=== PATIENT | male | born 1975 | race Caucasian/White ===

== ENCOUNTER 2016-07-11 07:16 | Emergency (ER) | payer MEDICAID, OTHER ==
[~2016-07-11] VITALS: Ht 162.6 cm; Wt 96.8 kg
[~2016-07-11 07:16] MED LIST: IBUP-1547 PO
[2016-07-11] MEDS ORDERED: PENI500T2 PO (07:25)
[2016-07-11 09:05] LABS: BASOPHILS % (AUTO) 0.7 % (0.0-2.0); EOSINOPHILS % (AUTO) 1.8 % (1.0-6.0); HEMATOCRIT 39.5 % (41-53); HEMOGLOBIN 13.5 g/dL (13.5-17.5); LYMPHOCYTES # (AUTO) 1.7 K/uL (1.0-4.8); LYMPHOCYTES % (AUTO) 25.9 % (22.0-44.0); MEAN CORPUSCULAR HEMOGLOBIN 30.4 pg (26.0-34.0); MEAN CORPUSCULAR HGB CONC 34.2 G/dL (31.0-37.0); MEAN CORPUSCULAR VOLUME 89 fL (80-100); MONOCYTES # (AUTO) 0.5 K/uL (0.1-1.0); MONOCYTES % (AUTO) 7.9 % (2.0-9.0); NEUTROPHILS # (AUTO) 4.3 K/uL (1.8-7.7); NEUTROPHILS % (AUTO) 63.7 % (40.0-70.0); PLATELET COUNT (AUTO) 257 K/uL (150-450); RED BLOOD CELL COUNT(AUTO) 4.45 MIL/uL (4.50-5.90); RED CELL DISTRIBUTION WIDTH 13.5 % (11.5-14.5); WHITE BLOOD COUNT (AUTO) 6.7 K/uL (4.5-11.0)
[2016-07-11] MEDS ORDERED: IBUPROFEN 600 MG TABLET PO ONE (11:30)
[2016-07-11 12:47] VITALS: BP 147/93
== END 2016-07-11 13:43 | disposition home or self-care (01) ==
LOC: EMS 07:18
DX: S39.011A Strain of muscle, fascia and tendon of abdomen, initial encounter (principal); Z88.8 Allergy status to other drugs, medicaments and biological substances; X58.XXXA Exposure to other specified factors, initial encounter; Y93.89 Activity, other specified; Y92.89 Other specified places as the place of occurrence of the external cause; Y99.8 Other external cause status
CPT/HCPCS: 99285

== ENCOUNTER 2019-01-10 17:26 | Emergency (ER) | payer OTHER ==
[~2019-01-10] VITALS: Ht 172.7 cm; Wt 90.9 kg
[~2019-01-10 17:26] MED LIST changes: -IBUP-1547 PO; +IBUP-2071 PO; +PENI500T2 PO
[2019-01-10] MEDS ORDERED: SERT25TA PO (17:31)
[2019-01-10 19:37] VITALS: BP 128/88
== END 2019-01-10 19:38 | disposition home or self-care (01) ==
LOC: EMS 17:26
DX: J40 Bronchitis, not specified as acute or chronic (principal); K21.9 Gastro-esophageal reflux disease without esophagitis; F41.9 Anxiety disorder, unspecified; F12.90 Cannabis use, unspecified, uncomplicated; Z88.6 Allergy status to analgesic agent; Z98.890 Other specified postprocedural states; Z79.899 Other long term (current) drug therapy

== ENCOUNTER 2019-01-31 19:58 | Emergency (ER) | payer OTHER ==
[~2019-01-31] VITALS: Ht 165.1 cm; Wt 89.1 kg
[~2019-01-31 19:58] MED LIST changes: -IBUP-2071 PO; -PENI500T2 PO; +SERT25TA PO
[2019-01-31 20:57] LABS: BASOPHILS % (AUTO) 0.6 % (0.0-2.0); EOSINOPHILS % (AUTO) 1.5 % (1.0-6.0); HEMATOCRIT 41.3 % (41-53); HEMOGLOBIN 13.9 g/dL (13.5-17.5); LYMPHOCYTES # (AUTO) 2.1 K/uL (1.0-4.8); LYMPHOCYTES % (AUTO) 24.3 % (22.0-44.0); MEAN CORPUSCULAR HEMOGLOBIN 30.5 pg (26.0-34.0); MEAN CORPUSCULAR HGB CONC 33.7 G/dL (31.0-37.0); MEAN CORPUSCULAR VOLUME 91 fL (80-100); MONOCYTES # (AUTO) 0.7 K/uL (0.1-1.0); MONOCYTES % (AUTO) 7.8 % (2.0-9.0); NEUTROPHILS # (AUTO) 5.6 K/uL (1.8-7.7); NEUTROPHILS % (AUTO) 65.8 % (40.0-70.0); PLATELET COUNT (AUTO) 288 K/uL (150-450); RED BLOOD CELL COUNT(AUTO) 4.57 MIL/uL (4.50-5.90); RED CELL DISTRIBUTION WIDTH 13.2 % (11.5-14.5)
[2019-01-31 21:05] LABS: APPEARANCE,URINE CLOUDY (CLEAR); GLUCOSE, URINE (UA) NEGATIVE (NEGATIVE); KETONES,URINE NEGATIVE (NEGATIVE); LEUKOCYTE ESTERASE ,URINE NEGATIVE (NEGATIVE); NITRATE,URINE NEGATIVE (NEGATIVE); OCCULT BLOOD,URINE LARGE (NEGATIVE); PH,URINE 5.5 (5.0-8.0); PROTEIN,URINE TRACE (NEGATIVE)
[2019-01-31 21:06] LABS: BILIRUBIN,URINE PRELIM. POSITIVE (NEGATIVE)
[2019-01-31 21:20] LABS: RBC,URINE 26-50 /HPF (0-2)
[2019-01-31 21:21] LABS: BACTERIA,URINE Few /HPF (None Seen); MUCUS,URINE Many LPF (None Seen); SQUAMOUS EPITHELIAL CELL,UR Moderate /LPF (None Seen)
[2019-01-31 21:53] LABS: ANION GAP 11 mmol/L (8-16); CALCIUM, TOTAL 9.1 mg/dL (8.8-10.5); CARBON DIOXIDE 25 mmol/L (22-29); CHLORIDE 104 mmol/L (98-107); CREATININE 0.89 mg/dL (0.60-1.30); GLOMERULAR FILTR. RATE CALC > 60 mL/min (>60); GLUCOSE,RANDOM 102 mg/dL (70-110); POTASSIUM 3.2 mmol/L (3.5-5.1); SODIUM SERUM 140 mmol/L (136-145); UREA NITROGEN, BLOOD 14 mg/dL (7-18)
[2019-01-31 21:59] LABS: ALANINE AMINOTRANSFERASE 41 U/L (12-78); ALBUMIN 3.8 g/dL (3.4-5.0); ALKALINE PHOSPHATASE 66 U/L (46-116); ASPARTATE AMINOTRANSFERASE 32 U/L (15-37); BILIRUBIN,TOTAL 0.4 mg/dL (0.1-1.0); LIPASE 233 U/L (73-393); TOTAL PROTEIN, SERUM 7.3 g/dL (6.4-8.2)
[2019-01-31] MEDS ORDERED: POTASSIUM CHLORIDE 20 MEQ ER TABLET PO ONE (22:00)
[2019-01-31 22:37] VITALS: BP 138/78
== END 2019-01-31 22:56 | disposition home or self-care (01) ==
LOC: EMS 19:59
DX: N20.9 Urinary calculus, unspecified (principal); J45.909 Unspecified asthma, uncomplicated; F41.9 Anxiety disorder, unspecified; F12.90 Cannabis use, unspecified, uncomplicated; F17.290 Nicotine dependence, other tobacco product, uncomplicated; Z88.8 Allergy status to other drugs, medicaments and biological substances; Z79.899 Other long term (current) drug therapy
CPT/HCPCS: 99406

== ENCOUNTER 2019-03-25 22:44 | Emergency (ER) | payer OTHER ==
[~2019-03-25] VITALS: Ht 154.9 cm; Wt 90.9 kg
[2019-03-26] MEDS ORDERED: HydrOXYzine HCL 25 MG TABLET PO ONE
[2019-03-26 01:28] VITALS: BP 123/71
== END 2019-03-26 01:52 | disposition home or self-care (01) ==
LOC: EMS 22:47
DX: F41.9 Anxiety disorder, unspecified (principal); G47.00 Insomnia, unspecified; J45.909 Unspecified asthma, uncomplicated; F12.90 Cannabis use, unspecified, uncomplicated; Z88.5 Allergy status to narcotic agent; Z88.8 Allergy status to other drugs, medicaments and biological substances
CPT/HCPCS: 93005

== ENCOUNTER 2024-07-10 15:28 | Inpatient (IN) | payer OTHER ==
[~2024-07-10] VITALS: Ht 167.6 cm; Wt 104.5 kg
[2024-07-10 15:54] LABS: COVID AG,FIA SOURCE NASAL SWAB
[2024-07-10 16:20] LABS: SARS-COV2 (COVID) ANTIGEN,FIA Negative (Negative)
[2024-07-10 16:21] LABS: INFLUENZA TYPE A NEGATIVE FOR TYPE A (NEGATIVE); INFLUENZA TYPE B POSITIVE FOR TYPE B (NEGATIVE)
[2024-07-10 16:48] LABS: BASOPHILS % (AUTO) 0.7 % (0.0-2.0); EOSINOPHILS % (AUTO) 0 % (1.0-6.0); HEMATOCRIT 47.4 % (41-53); HEMOGLOBIN 15.9 g/dL (13.5-17.5); LYMPHOCYTES % (AUTO) 11.1 % (22.0-44.0); MEAN CORPUSCULAR HEMOGLOBIN 30.5 pg (26.0-34.0); MEAN CORPUSCULAR HGB CONC 33.7 G/dL (31.0-37.0); MEAN CORPUSCULAR VOLUME 91 fL (80-100); MONOCYTES # (AUTO) 0.8 K/uL (0.1-1.0); MONOCYTES % (AUTO) 9.2 % (2.0-9.0); NEUTROPHILS # (AUTO) 7.2 K/uL (1.8-7.7); PLATELET COUNT (AUTO) 191 K/uL (150-450); RED BLOOD CELL COUNT(AUTO) 5.23 MIL/uL (4.50-5.90); RED CELL DISTRIBUTION WIDTH 13.9 % (11.5-14.5); WHITE BLOOD COUNT (AUTO) 9.1 K/uL (4.5-11.0)
[2024-07-10 16:52] LABS: ANION GAP 13 mmol/L (8-16); CARBON DIOXIDE 26 mmol/L (22-29); CHLORIDE 101 mmol/L (98-107); CREATININE 1.05 mg/dL (0.60-1.30); GLOMERULAR FILTR. RATE CALC > 60 mL/min (>60); GLUCOSE,RANDOM 119 mg/dL (70-110); POTASSIUM 3.5 mmol/L (3.5-5.1); SODIUM SERUM 140 mmol/L (136-145); UREA NITROGEN, BLOOD 14 mg/dL (7-18)
[2024-07-10 16:56] LABS: ALCOHOL, BLOOD (SERUM) < 3 mg/dL (0-10)
[2024-07-10 17:02] LABS: B-TYPE NATRIURETIC PEPTIDE 6 pg/mL (0-100)
[2024-07-10 17:06] LABS: ALANINE AMINOTRANSFERASE 30 U/L (12-78); ALBUMIN 3.6 g/dL (3.4-5.0); ALKALINE PHOSPHATASE 78 U/L (46-116); ASPARTATE AMINOTRANSFERASE 30 U/L (15-37); BILIRUBIN,TOTAL 0.4 mg/dL (0.1-1.0); CREATINE KINASE, TOTAL ONLY 121 U/L (39-308); LIPASE 25 U/L (16-77); TOTAL PROTEIN, SERUM 8.2 g/dL (6.4-8.2); TROPONIN I-HIGH SENSITIVITY 9 ng/L (<76)
[2024-07-10] MEDS ORDERED: MAGNESIUM HYDROXIDE SUSPENSION 30 ML UDCUP PO PRN (18:00)
[2024-07-10] MEDS ORDERED: ALBUTEROL SULFATE 2.5 MG/0.5 ML NEB SOLUTION NEB PRN (18:00)
[2024-07-10] MEDS: LORazepam 1 MG TABLET PO ONE (18:25)
[2024-07-10] MEDS: ACETAMINOPHEN 500 MG TABLET PO ONE (18:26)
[2024-07-10] MEDS: SODIUM CHLORIDE 0.9% 1,000 ML IV ONE (18:26)
[2024-07-10] MEDS: ONDANSETRON HCL 4 MG/2 ML VIAL IVP ONE (18:26)
[2024-07-10] MEDS: FAMOTIDINE 20 MG/2 ML VIAL IVP ONE (18:29)
[2024-07-10 19:50] LABS: APPEARANCE,URINE CLEAR (CLEAR); BILIRUBIN,URINE NEGATIVE (NEGATIVE); COLOR,URINE YELLOW (YELLOW); GLUCOSE, URINE (UA) NEGATIVE (NEGATIVE); KETONES,URINE 80-100 mg/dL (NEGATIVE); LEUKOCYTE ESTERASE ,URINE NEGATIVE (NEGATIVE); NITRATE,URINE NEGATIVE (NEGATIVE); OCCULT BLOOD,URINE SMALL (NEGATIVE); PH,URINE 5.5 (5.0-8.0); PH,URINE DRUG SCREEN 5.5 (5.0-8.0); PROTEIN,URINE 30-70 mg/dL (NEGATIVE); SPECIFIC GRAVITIY, URINE 1.033 (1.003-1.030); UROBILINOGEN,URINE <=1.0 mg/dL (<=1.0)
[2024-07-10 19:58] LABS: ALCOHOL, URINE DRUG SCREEN NEGATIVE (NEGATIVE); AMPHET/METH SCREEN,URINE NEGATIVE (NEGATIVE); BARBITURATE SCREEN, URINE NEGATIVE (NEGATIVE); BENZODIAZEPINES SCREEN,URINE NEGATIVE (NEGATIVE); CANNABINOID SCREEN,URINE POSITIVE (NEGATIVE); COCAINE SCREEN,URINE NEGATIVE (NEGATIVE); METHADONE SCREEN, URINE NEGATIVE (NEGATIVE); OPIATE SCREEN,URINE NEGATIVE (NEGATIVE); PHENCYCLIDINE SCREEN,URINE NEGATIVE (NEGATIVE)
[2024-07-10 20:15] LABS: BACTERIA,URINE Few /HPF (None Seen); SQUAMOUS EPITHELIAL CELL,UR Few /LPF (None Seen)
[2024-07-10] MEDS: OSELTAMIVIR PHOSPHATE 75 MG CAPSULE PO SCH (20:54)
[2024-07-10 23:01] VITALS: BP 132/78; PULSE 85; RESP 18; TEMP 98; O2SAT 97
[2024-07-10] MEDS: ZOLPIDEM TARTRATE 5 MG TABLET PO PRN (23:40)
[2024-07-11 05:41] VITALS: BP 142/80; PULSE 91; RESP 18; TEMP 99; O2SAT 94
[2024-07-11 07:37] VITALS: BP 133/90; PULSE 82; RESP 19; TEMP 99.5; O2SAT 96
[2024-07-11] MEDS: FAMOTIDINE 20 MG TABLET PO SCH (08:08)
[2024-07-11] MEDS: ACETAMINOPHEN 325 MG TABLET PO PRN (08:08)
[2024-07-11 09:08] VITALS: TEMP 99.1
[2024-07-11] MEDS: LORazepam 1 MG TABLET PO PRN (09:19)
[2024-07-11 13:00] VITALS: BP 130/80; PULSE 75; RESP 18; TEMP 98.9; O2SAT 97
[2024-07-11] MEDS ORDERED: OSEL75CA45 PO (13:45)
== END 2024-07-11 15:15 | disposition home or self-care (01) | DRG 195 ==
LOC: EMS 15:30 → EDH 18:37 → 4E 22:50
PROVIDERS: ADMIT Internal Medicine; ATTEND Internal Medicine
DX: J10.1 Influenza due to other identified influenza virus with other respiratory manifestations (principal); E66.9 Obesity, unspecified; F41.1 Generalized anxiety disorder; Z20.822 Contact with and (suspected) exposure to COVID-19; J45.909 Unspecified asthma, uncomplicated; K21.9 Gastro-esophageal reflux disease without esophagitis; Z87.442 Personal history of urinary calculi; Z68.37 Body mass index [BMI] 37.0-37.9, adult
CPT/HCPCS: 71045; 80048; 80076; 80307; 81001; 82550; 83690; 83735; 83880; 84484; 85025; 87804; 93005; 99285; G0378; G0480; J2405; J3490; J7030; 36415-L1; 36415-TC

== ENCOUNTER 2025-02-04 12:27 | Emergency (ER) | payer OTHER ==
[~2025-02-04] VITALS: Ht 152.4 cm; Wt 96.3 kg
[~2025-02-04 12:27] MED LIST changes: +OSEL75CA45 PO; -SERT25TA PO
[2025-02-04 13:00] VITALS: TEMP 98.7
[2025-02-04 14:17] LABS: PLATELET COUNT (AUTO) 295 K/uL (150-450); RED BLOOD CELL COUNT(AUTO) 4.92 MIL/uL (4.50-5.90); RED CELL DISTRIBUTION WIDTH 13.5 % (11.5-14.5); WHITE BLOOD COUNT (AUTO) 7.4 K/uL (4.5-11.0)
[2025-02-04 14:24] LABS: CALCIUM, TOTAL 8.6 mg/dL (8.8-10.5); CREATININE 0.83 mg/dL (0.60-1.30); GLOMERULAR FILTR. RATE CALC > 60 mL/min (>60); GLUCOSE,RANDOM 89 mg/dL (70-110); SODIUM SERUM 138 mmol/L (136-145); UREA NITROGEN, BLOOD 11 mg/dL (7-18)
[2025-02-04 15:51] LABS: PH,URINE DRUG SCREEN 7.0 (5.0-8.0)
[2025-02-04 15:58] LABS: ALCOHOL, URINE DRUG SCREEN NEGATIVE (NEGATIVE); AMPHET/METH SCREEN,URINE NEGATIVE (NEGATIVE); BARBITURATE SCREEN, URINE NEGATIVE (NEGATIVE); CANNABINOID SCREEN,URINE POSITIVE (NEGATIVE); COCAINE SCREEN,URINE NEGATIVE (NEGATIVE); METHADONE SCREEN, URINE NEGATIVE (NEGATIVE)
[2025-02-04] MEDS ORDERED: LORA1TAB25 PO (16:14)
[2025-02-04 16:19] VITALS: BP 149/107; PULSE 64; RESP 16; O2SAT 99
== END 2025-02-04 16:32 | disposition home or self-care (01) ==
LOC: EMS 12:28
DX: F41.9 Anxiety disorder, unspecified (principal); J45.909 Unspecified asthma, uncomplicated; F12.90 Cannabis use, unspecified, uncomplicated; Z98.890 Other specified postprocedural states; Z90.49 Acquired absence of other specified parts of digestive tract; Z87.442 Personal history of urinary calculi; Z79.899 Other long term (current) drug therapy; Z76.0 Encounter for issue of repeat prescription; Z88.5 Allergy status to narcotic agent
CPT/HCPCS: 99283; 80048; 85025; 36415; 80307; G0480